=== PATIENT | male | born 1985 | race Caucasian/White ===

== ENCOUNTER 2022-04-17 04:53 | Emergency (ER) | payer OTHER ==
[~2022-04-17] VITALS: Ht 175.3 cm; Wt 90.3 kg
[~2022-04-17 04:53] MED LIST: KETO10TA2 PO; NORFLEX100 MG PO; ORPH100T PO; SKELAXIN
[2022-04-17] MEDS ORDERED: FENOFIBRATE50 MG PO (05:03)
[2022-04-17] MEDS ORDERED: TUSNEL LIQUID178 ML PO (07:28)
[2022-04-17] MEDS ORDERED: ZITHROMAX500 MG PO (07:28)
== END 2022-04-17 08:56 | disposition home or self-care (01) ==
LOC: ER 04:53
DX: J00 Acute nasopharyngitis [common cold] (principal); Z20.822 Contact with and (suspected) exposure to COVID-19

== ENCOUNTER 2023-01-29 06:28 | Emergency (ER) | payer OTHER ==
[~2023-01-29] VITALS: Ht 170.2 cm; Wt 94.3 kg
[~2023-01-29 06:28] MED LIST changes: +FENOFIBRATE50 MG PO; +TUSNEL LIQUID178 ML PO; +ZITHROMAX500 MG PO
[2023-01-29 08:02] LABS: URINE APPEARANCE Clear; URINE BILIRRUBIN Negative (NEGATIVE); URINE BLOOD Negative; URINE COLOR Yellow; URINE GLUCOSE Negative (NEGATIVE); URINE LEUKOCYTE Negative; URINE NITRATE Negative; URINE PROTEIN Negative (NEGATIVE); URINE UROBILINOGEN 0.2 E.U./dl
[2023-01-29 08:04] LABS: HEMATOCRIT 38.4 % (39.0-48.0); HEMOGLOBIN 13.4 g/dL (13-16.00); MEAN CELL VOLUME 88.2 fL (80.0-100.00); MEAN CORPUSCULAR HEMOGLOBIN 30.7 pg (27.00-32.0); MEAN CORPUSCULAR HGB CONC 34.8 g/dl (32.0-36.0); PLATELET COUNT 282 K/uL (150-450); RED BLOOD COUNT 4.36 M/uL (4.00-6.00); RED CELL DISTRIBUTION WIDTH 13.8 % (11.5-14.5)
[2023-01-29 08:06] LABS: URINE RBC 5.4 uL (0.0-20.8)
[2023-01-29 08:16] LABS: URINE BACTERIA 3.7 uL (0.0-1933); URINE EPITHELIAL CELLS 0.1 uL (0.0-38.8); URINE WBC 0.4 uL (0.0-23.2)
[2023-01-29 08:42] LABS: ALBUMIN 3.7 gm/dL (3.4-5.0); BILIRUBIN TOTAL 0.32 mg/dL (0.3-1.2); CREATININE SERUM 0.97 mg/dL (0.70-1.30); GFR 88.07; GLOBULINA 3.3 G/DL (2.4-3.5); POTASSIUM 3.88 mEq/L (3.5-5.1)
== END 2023-01-29 12:01 | disposition home or self-care (01) ==
LOC: ER 06:28
PROVIDERS: General Practice
DX: M54.50 Low back pain, unspecified (principal)